=== PATIENT | female | born 1935 | race Caucasian/White ===

== ENCOUNTER 2016-12-31 10:10 | Emergency (ER) | payer MEDICARE, OTHER ==
[2016-12-31 10:27] VITALS: TEMP 97.6
[2016-12-31] MEDS ORDERED: ONDANSETRON ODT 4 MG TAB PO STA (10:52)
--- NOTE | 2016-12-31 10:57 | ED ---
General Adult HPI - General Chief complaint: Nausea/Vomiting/Diarrhea Stated complaint: nauseated, shaky Time Seen by Provider: 12/31/16 10:44 Source: patient Mode of arrival: wheelchair Limitations: no limitations - History of Present Illness Initial comments: This 81-year-old white female presents with a complaint of some dizziness which occurred yesterday afternoon. It apparently lasted for approximately 1 minute. She describes it as a lightheadedness but there is no spinning type of sensation. She has been nauseated since then. She denies any headache, chest pain, shortness of breath. She has not had any problems with ambulation, sensation, weakness, speech, or vision. She states that she had vertigo remotely but this does not feel similar to her previous vertigo. She denies any history of TIA or CVA. She took her blood pressure at home and her systolic was approximately 170. She denies any other complaints or modifying factors. - Related Data Home Medications Medication Instructions Recorded Confirmed Levothyroxine Sodium [Synthroid] 100 mcg PO MOTUWETHFRSA 08/31/14 12/31/16 Omeprazole [PriLOSEC] 20 mg PO DAILY 08/31/14 12/31/16 Pravastatin Sodium [Pravachol] 40 mg PO DAILY 08/31/14 12/31/16 Warfarin [Coumadin] 3 mg PO MOTUTHSA 08/31/14 12/31/16 amLODIPine BESYLATE [Norvasc] 10 mg PO DAILY 08/31/14 12/31/16 Aspirin 81 mg PO DAILY 09/16/14 12/31/16 Levothyroxine Sodium [Synthroid] 50 mcg PO MO 09/16/14 12/31/16 Cholecalciferol [Vitamin D3] 2,000 unit PO DAILY 09/27/15 12/31/16 Sotalol [Betapace] 80 mg PO BID 10/25/15 12/31/16 Calcium Carbonate [Calcium] 600 mg PO DAILY 12/31/16 12/31/16 Ferrous Sulfate [Feosol] 325 mg PO DAILY 12/31/16 12/31/16 Folic Acid 0.8 mg PO DAILY 12/31/16 12/31/16 Lisinopril-Hctz 20-12.5 mg 1 tab PO BID 12/31/16 12/31/16 [Zestoretic 20-12.5] Loratadine [Claritin] 10 mg PO DAILY 12/31/16 12/31/16 Magnesium Chloride [Slow Mag] 64 mg PO BID 12/31/16 12/31/16 Meclizine [Antivert] 25 mg PO QID PRN 12/31/16 12/31/16 Metoprolol Succinate [Toprol XL] 50 mg PO DAILY 12/31/16 12/31/16 Vitamin B Complex 1 cap PO DAILY 12/31/16 12/31/16 Warfarin Sodium [Coumadin] 4.5 mg PO SUWEFR 12/31/16 12/31/16 Previous Rx's Medication Instructions Recorded Ondansetron [Zofran ODT] 8 mg PO Q8HR PRN #12 tab 12/31/16 Allergies Allergy/AdvReac Type Severity Reaction Status Date / Time No Known Allergies Allergy Verified 12/31/16 11:10 Review of Systems ROS Statement: Those systems with pertinent positive or pertinent negative responses have been documented in the HPI. ROS Other: All systems not noted in ROS Statement are negative. Past Medical History Past Medical History: Atrial Fibrillation, Deep Vein Thrombosis (DVT), GERD/ Reflux, Hypertension, Skin Disorder, Thyroid Disorder Additional Past Medical History / Comment(s): vertigo History of Any Multi-Drug Resistant Organisms: None Reported Past Surgical History: Appendectomy, Back Surgery, Bladder Surgery, Cholecystectomy, Ear Surgery, Heart Catheterization, Hysterectomy, Joint Replacement, Orthopedic Surgery, Pacemaker, Tonsillectomy Additional Past Surgical History / Comment(s): Bilateral carpal tunnel, bilateral knee replacements,bilateral cataracts, lt. leg vein surgery. Discectomy in the s Past Anesthesia/Blood Transfusion Reactions: No Reported Reaction Type of Cardiac Device: Permanent Pacemaker Device Placement Date:: 2007 Past Psychological History: No Psychological Hx Reported Smoking Status: Former smoker Past Alcohol Use History: None Reported Past Drug Use History: None Reported General Exam - General Exam Comments Initial Comments: GENERAL: The patient is well nourished and well hydrated. VITAL SIGNS: Heart rate, blood pressure, respiratory rate reviewed as recorded in nurse's notes. EYES: Pupils are round and reactive. Extraocular movements are intact. No conjunctival / lid redness or swelling. ENT: No external evidence of injury, swelling, or ecchymosis. Airway is patent. Throat is clear. The left tympanic membrane is ruptured and this is a chronic finding per patient. NECK: Nontender. No swelling or evidence of injury. No subcutaneous emphysema. Trachea is midline. No thyroid mass. HEART: Regular rate and rhythm. Good peripheral pulses. LUNGS/CHEST: Breath sounds clear and equal bilaterally. No rales, rhonchi, or wheezes. No ecchymosis, subcutaneous emphysema, or tenderness. ABDOMEN: Abdomen soft without tenderness. No palpable masses or organomegaly. No peritoneal signs. No abdominal wall swelling or ecchymosis. EXTREMITIES: No extremity tenderness. Normal muscle tone and function. No thoracolumbar tenderness. NEUROLOGIC: Sensation is grossly intact. Cranial nerve exam reveals face is symmetrical, tongue is midline, speech is clear. SKIN: No abrasions or ecchymosis is noted. No induration or masses noted. PSYCHIATRIC: Alert and oriented. Appropriate behavior and judgment. Limitations: no limitations Course Vital Signs 12/31/16 12/31/16 10:25 12:12 Temperature 97.6 F Pulse Rate 62 60 Respiratory 20 17 Rate Blood Pressure 135/91 113/55 O2 Sat by Pulse 99 97 Oximetry Medical Decision Making - Medical Decision Making The patient was seen and examined. All diagnostics were reviewed. She does receive some Zofran for nausea. The laboratory shows a therapeutic INR but otherwise the laboratory is unremarkable. The EKG shows a paced rhythm at a rate of 64. The MI interval is 198, QRS duration is 84, and the QTc interval is 451. There is no acute ST-T wave changes noted. The computed tomography scan showed some chronic white matter changes likely secondary to microvascular disease. The patient is feeling improved on recheck with the Zofran. The exact cause of her dizziness and nausea is not definitively determined. It is felt as though she is stable for discharge with close follow-up with her primary doctor. Return parameters are discussed. - Lab Data Result diagrams: 12/31/16 11:17 12/31/16 11:17 Lab Results 12/31/16 12/31/16 12/31/16 Range/Units 11:17 11:17 11:17 WBC 6.2 (3.8-10.6) k/uL RBC 4.47 (3.80-5.40) m/uL Hgb 13.0 (11.4-16.0) gm/dL Hct 38.2 (34.0-46.0) % MCV 85.5 (80.0-100.0) fL MCH 29.0 (25.0-35.0) pg MCHC 34.0 (31.0-37.0) g/dL RDW 15.6 H (11.5-15.5) % Plt Count 239 (150-450) k/uL Neutrophils % 65 % Lymphocytes % 25 % Monocytes % 6 % Eosinophils % 1 % Basophils % 1 % Neutrophils # 4.0 (1.3-7.7) k/uL Lymphocytes # 1.5 (1.0-4.8) k/uL Monocytes # 0.4 (0-1.0) k/uL Eosinophils # 0.1 (0-0.7) k/uL Basophils # 0.1 (0-0.2) k/uL PT 24.3 H (9.0-12.0) sec INR 2.5 H (<1.2) APTT 31.5 H (22.0-30.0) sec Sodium 139 (137-145) mmol/L Potassium 4.4 (3.5-5.1) mmol/L Chloride 103 (98-107) mmol/L Carbon Dioxide 26 (22-30) mmol/L Anion Gap 10 mmol/L BUN 22 H (7-17) mg/dL Creatinine 1.10 H (0.52-1.04) mg/dL Est GFR (MDRD) Af Amer 58 (>60 ml/min/1.73 sqM) Est GFR (MDRD) Non-Af 48 (>60 ml/min/1.73 sqM) Glucose 101 H (74-99) mg/dL Calcium 9.4 (8.4-10.2) mg/dL Phosphorus 3.5 (2.5-4.5) mg/dL Magnesium 1.8 (1.6-2.3) mg/dL Total Bilirubin 0.7 (0.2-1.3) mg/dL AST 24 (14-36) U/L ALT 28 (9-52) U/L Alkaline Phosphatase 79 (38-126) U/L Total Protein 7.3 (6.3-8.2) g/dL Albumin 4.4 (3.5-5.0) g/dL Disposition Clinical Impression: Dizziness, Nausea Disposition: HOME SELF-CARE Condition: Good Instructions: Acute Nausea and Vomiting (ED), Dizziness (ED) Prescriptions: Ondansetron [Zofran ODT] 8 mg PO Q8HR PRN #12 tab PRN Reason: Nausea Referrals: Hugo De La O MD [Primary Care Provider] - 1-2 days Time of Disposition: 12:30
[2016-12-31 11:35] LABS: Basophils # (A) 0.1 k/uL (0-0.2); Basophils % (A) 1 %; CH 29.9; CHCM 35.1; Eosinophils # (A) 0.1 k/uL (0-0.7); Eosinophils % (A) 1 %; HCT 38.2 % (34.0-46.0); Luc # (Auto) 0.16; Luc % (Auto) 3; Lymphocytes # (A) 1.5 k/uL (1.0-4.8); Lymphocytes % (A) 25 %; MCV 85.5 fL (80.0-100.0); Mean Platelet Volume 7.2; Monocytes # (A) 0.4 k/uL (0-1.0); Monocytes % (A) 6 %; Neutrophils % (A) 65 %; RBC 4.47 m/uL (3.80-5.40); RDW 15.6 % (11.5-15.5); WBC 6.2 k/uL (3.8-10.6); WBC (Perox) 6.32
[2016-12-31 11:39] LABS: INR 2.5 (<1.2); Partial Thromboplastin Time 31.5 sec (22.0-30.0); Prothrombin Time 24.3 sec (9.0-12.0)
[2016-12-31 11:45] LABS: Calcium 9.4 mg/dL (8.4-10.2); Magnesium 1.8 mg/dL (1.6-2.3); Phosphorous 3.5 mg/dL (2.5-4.5); Potassium 4.4 mmol/L (3.5-5.1); Total Bilirubin 0.7 mg/dL (0.2-1.3); Total Protein 7.3 g/dL (6.3-8.2)
--- NOTE | 2016-12-31 12:04 | CT ---
EXAMINATION TYPE: CT brain wo con DATE OF EXAM: 12/31/2016 COMPARISON: NONE HISTORY: Dizziness for 2 days with headache and right sided head pressure. No known injury CT DLP: 1121 mGycm Automated exposure control for dose reduction was used. FINDINGS: Mild to moderate generalized degenerative change. Nonspecific periventricular low attenuation. No midline shift or mass effect. No acute intracranial hemorrhage. Small focal hypodensity within the basal ganglia may represent a prominent Virchow-Gael space or tin y remote lacunar infarction. Atherosclerotic change of the vasculature. Hyperostosis of the calvarium. IMPRESSION: DEGENERATIVE AND NONSPECIFIC WHITE MATTER CHANGES MOST TYPICAL REMOTE MICROVASCULAR ISCHEMIA. IF THER E IS CONCERN FOR ACUTE ISCHEMIA CONSIDER MRI.
[2016-12-31 12:48] VITALS: BP 146/70; PULSE 63; RESP 18
== END 2016-12-31 12:49 | disposition home or self-care (01) ==
LOC: EC 10:10
DX: R11.0 Nausea (principal); R42 Dizziness and giddiness; H72.92 Unspecified perforation of tympanic membrane, left ear; R90.82 White matter disease, unspecified; I10 Essential (primary) hypertension; I48.91 Unspecified atrial fibrillation; K21.9 Gastro-esophageal reflux disease without esophagitis; E07.9 Disorder of thyroid, unspecified; Z87.891 Personal history of nicotine dependence; Z79.01 Long term (current) use of anticoagulants; Z79.82 Long term (current) use of aspirin; Z79.899 Other long term (current) drug therapy; Z86.718 Personal history of other venous thrombosis and embolism; Z90.49 Acquired absence of other specified parts of digestive tract
CPT/HCPCS: 36415; 70450; 80053; 83735; 84100; 85025; 85610; 85730; 93005; 99284

== ENCOUNTER → 2017-01-10 | Outpatient (CLI) | payer MEDICARE, OTHER ==
[2017-01-10 13:26] LABS: Appearance,Urine Clear (Clear); Bacteria,Urine Rare /hpf; Bilirubin,Urine Negative (Negative); Glucose,Urine (UA) Negative (Negative); Ketones,Urine Negative (Negative); Leukocyte Esterase,Urine Large (Negative); Mucus,Urine Rare /hpf; Nitrite,Urine Negative (Negative); PH, Urine 5.5 (5.0-8.0); Particle Count 1301; Protein,Urine Negative (Negative); RBC,Urine 1 /hpf (0-5); Specific Gravity,Urine 1.009 (1.001-1.035); Squamous Epithelial Cell,Urine 1 /hpf (0-4); UA Billing (MACRO vs. MICRO) MICRO; Urobilinogen,Urine <2.0 mg/dL (<2.0); WBC,Urine 19 /hpf (0-5)
[2017-01-10 13:41] LABS: CH 28.6; CHCM 33.2; HCT 37.2 % (34.0-46.0); HDW 2.64; HGB 12.5 gm/dL (11.4-16.0); MCHC 33.5 g/dL (31.0-37.0); MCV 86.5 fL (80.0-100.0); Mean Platelet Volume 6.6; RDW 14.2 % (11.5-15.5); WBC 5.9 k/uL (3.8-10.6)
[2017-01-10 14:00] LABS: Anion Gap 11 mmol/L; Blood Urea Nitrogen 25 mg/dL (7-17); Calcium 9.4 mg/dL (8.4-10.2); Carbon Dioxide 23 mmol/L (22-30); Chloride 103 mmol/L (98-107); Glucose 100 mg/dL (74-99); Non-African American GFR(MDRD) 53 (>60 ml/min/1.73 sqM); Potassium 4.5 mmol/L (3.5-5.1); Sodium 137 mmol/L (137-145)
[2017-01-10 19:40] LABS: Hemoglobin A1C 5.2 % (4.2-6.1)
== END | disposition home or self-care (01) ==
LOC: LABPAT 12:49
PROVIDERS: ATTEND Orthopaedic Surgery
DX: N39.0 Urinary tract infection, site not specified (principal); M16.11 Unilateral primary osteoarthritis, right hip; Z79.899 Other long term (current) drug therapy
CPT/HCPCS: 36415; 80048; 81001; 82040; 83036; 85027; 87070; 87086

== ENCOUNTER 2017-01-13 13:10 | Emergency (ER) | payer MEDICARE, OTHER ==
--- NOTE | 2017-01-13 14:01 | ED ---
General Adult HPI <Corey William - Last Filed: 01/13/17 15:00> - General Source: patient, RN notes reviewed Mode of arrival: wheelchair Limitations: no limitations <Edward Morales - Last Filed: 01/13/17 15:07> - General Chief complaint: Extremity Injury, Lower Stated complaint: Varicose Vein Bleed Time Seen by Provider: 01/13/17 13:38 - History of Present Illness Initial comments: Vision is an 81-year-old female who presents emergency room today with a chief complaint of a wound to the posterior aspect of the right leg that began bleeding again this morning. She has been that she saw Dr. Avelar who put dressing over the wound. She states change dressing this morning and saw some small amount of bleeding this morning but then noticed that it had bled through her dressing. She states she is on Coumadin. States had a recheck 2 days ago and was 2.3 patient's that she did call Dr. Avelar's office and was advised coming to the emergency room because he is currently at the hospital. She denies any other complaints or symptoms. Patient denies any recent fever, chills , shortness of breath, chest pain, back pain, abdominal pain, nausea or vomiting , numbness or tingling, dysuria or hematuria, constipation or diarrhea, headaches or visual changes, or any other complaints. (Edward Morales) - Related Data Home Medications Medication Instructions Recorded Confirmed Levothyroxine Sodium [Synthroid] 100 mcg PO MOTUWETHFRSA 08/31/14 01/13/17 Omeprazole [PriLOSEC] 20 mg PO DAILY 08/31/14 01/13/17 Pravastatin Sodium [Pravachol] 40 mg PO DAILY 08/31/14 01/13/17 Warfarin [Coumadin] 3 mg PO SUTUWETHFRSA 08/31/14 01/13/17 amLODIPine BESYLATE [Norvasc] 10 mg PO DAILY 08/31/14 01/13/17 Aspirin 81 mg PO DAILY 09/16/14 01/13/17 Levothyroxine Sodium [Synthroid] 50 mcg PO MO 09/16/14 01/13/17 Cholecalciferol [Vitamin D3] 2,000 unit PO DAILY 09/27/15 01/13/17 Sotalol [Betapace] 80 mg PO BID 10/25/15 01/13/17 Calcium Carbonate [Calcium] 600 mg PO DAILY 12/31/16 01/13/17 Folic Acid 0.8 mg PO DAILY 12/31/16 01/13/17 Lisinopril-Hctz 20-12.5 mg 1 tab PO BID 12/31/16 01/13/17 [Zestoretic 20-12.5] Loratadine [Claritin] 10 mg PO DAILY 12/31/16 01/13/17 Magnesium Chloride [Slow Mag] 64 mg PO BID 12/31/16 01/13/17 Meclizine [Antivert] 25 mg PO QID PRN 12/31/16 01/13/17 Metoprolol Succinate [Toprol XL] 50 mg PO DAILY 12/31/16 01/13/17 Vitamin B Complex 1 cap PO DAILY 12/31/16 01/13/17 Warfarin Sodium [Coumadin] 6 mg PO MO 12/31/16 01/13/17 Previous Rx's Medication Instructions Recorded Ondansetron [Zofran ODT] 8 mg PO Q8HR PRN #12 tab 12/31/16 Allergies Allergy/AdvReac Type Severity Reaction Status Date / Time No Known Allergies Allergy Verified 01/13/17 14:11 Review of Systems ROS Other: All systems not noted in ROS Statement are negative. <Corey William - Last Filed: 01/13/17 15:00> ROS Other: All systems not noted in ROS Statement are negative. <Edward Morales - Last Filed: 01/13/17 15:07> ROS Statement: Those systems with pertinent positive or pertinent negative responses have been documented in the HPI. Past Medical History Past Medical History: Atrial Fibrillation, Deep Vein Thrombosis (DVT), GERD/ Reflux, Hypertension, Skin Disorder, Thyroid Disorder Additional Past Medical History / Comment(s): vertigo History of Any Multi-Drug Resistant Organisms: None Reported Past Surgical History: Appendectomy, Back Surgery, Bladder Surgery, Cholecystectomy, Ear Surgery, Heart Catheterization, Hysterectomy, Joint Replacement, Orthopedic Surgery, Pacemaker, Tonsillectomy Additional Past Surgical History / Comment(s): Bilateral carpal tunnel, bilateral knee replacements,bilateral cataracts, lt. leg vein surgery. Discectomy in the s Past Anesthesia/Blood Transfusion Reactions: No Reported Reaction Type of Cardiac Device: Permanent Pacemaker Device Placement Date:: 2007 Past Psychological History: No Psychological Hx Reported Smoking Status: Former smoker Past Alcohol Use History: None Reported Past Drug Use History: None Reported <Edward Morales - Last Filed: 01/13/17 15:07> General Exam <Corey William - Last Filed: 01/13/17 15:00> Limitations: no limitations <Edward Morales - Last Filed: 01/13/17 15:07> - General Exam Comments Initial Comments: General: The patient is awake and alert, in no distress, and does not appear acutely ill. Eye: Pupils are equal, round and reactive to light, extra-ocular movements are intact. No nystagmus. There is normal conjunctiva bilaterally. No signs of icterus. Ears, nose, mouth and throat: There are moist mucous membranes and no oral lesions. Neck: The neck is supple, there is no tenderness or JVD. Cardiovascular: There is a regular rate and rhythm. No murmur, rub or gallop is appreciated. Respiratory: Lungs are clear to auscultation, respirations are non-labored, breath sounds are equal. No wheezes, stridor, rales, or rhonchi. Gastrointestinal: Soft, non-distended, non-tender abdomen without masses or organomegaly noted. There is no rebound or guarding present. No CVA tenderness. Bowel sounds are unremarkable. Musculoskeletal: Normal ROM, no tenderness. Strength 5/5. Sensation intact. Pulses equal bilaterally 2+. Neurological: A&O x 3. CN II-XII intact, There are no obvious motor or sensory deficits. Coordination appears grossly intact. Speech is normal. Skin: Skin is warm and dry and no rashes or lesions are noted. Psychiatric: Cooperative, appropriate mood & affect, normal judgment. (Edward Morales) Course <Corey William - Last Filed: 01/13/17 15:00> <Edward Morales - Last Filed: 01/13/17 15:07> Vital Signs 01/13/17 13:33 Temperature 98.2 F Pulse Rate 69 Respiratory 20 Rate Blood Pressure 183/72 O2 Sat by Pulse 98 Oximetry - Reevaluation(s) Reevaluation #1: 01/13/17 15:00 PA supervision: I did personally do a [id number] evaluation the patient and did discuss the findings with the patient and her . Patient does demonstrate evidence of a varicose pain with some mild oozing from the site. No evidence of any infectious process. There is a small clot in the area. No other significant findings. I did discuss the case with Dr. Avelar who did come the [facility] department and see the patient and did actually treat and wrapped the area. Patient will follow-up with him in the office in 2 days. ( Corey William) Medical Decision Making - Lab Data Result diagrams: 01/13/17 14:17 <Corey William - Last Filed: 01/13/17 15:00> - Lab Data Result diagrams: 01/13/17 14:17 <Edward Morales - Last Filed: 01/13/17 15:07> - Medical Decision Making Patient was seen here in the emergency room by Dr. Avelar who did dress the wound. And will have patient follow-up with him in the office with the scheduled appointment in 2 days. Patient be discharged home. She is with the plan since understanding. (Edward Morales) - Lab Data Lab Results 01/13/17 01/13/17 Range/Units 14:17 14:17 WBC 7.0 (3.8-10.6) k/uL RBC 4.35 (3.80-5.40) m/uL Hgb 12.3 (11.4-16.0) gm/dL Hct 37.1 (34.0-46.0) % MCV 85.5 (80.0-100.0) fL MCH 28.3 (25.0-35.0) pg MCHC 33.1 (31.0-37.0) g/dL RDW 14.9 (11.5-15.5) % Plt Count 208 (150-450) k/uL Neutrophils % 72 % Lymphocytes % 19 % Monocytes % 6 % Eosinophils % 1 % Basophils % 1 % Neutrophils # 5.0 (1.3-7.7) k/uL Lymphocytes # 1.4 (1.0-4.8) k/uL Monocytes # 0.4 (0-1.0) k/uL Eosinophils # 0.1 (0-0.7) k/uL Basophils # 0.0 (0-0.2) k/uL PT 26.4 H (9.0-12.0) sec INR 2.7 H (<1.2) Disposition <Corey William - Last Filed: 01/13/17 15:00> Time of Disposition: 15:06 <Edward Morales - Last Filed: 01/13/17 15:07> Clinical Impression: Visit for wound check Disposition: HOME SELF-CARE Condition: Good Instructions: Chronic Wound Care (ED) Additional Instructions: Please follow-up with Dr. Avelar in the office with her scheduled appointment on Friday. Please return to emergency room if the symptoms increase or worsen or for any other concerns. Referrals: Hugo De La O MD [Primary Care Provider] - 1-2 days
[2017-01-13 14:26] LABS: Basophils % (A) 1 %; CH 29.5; CHCM 34.7; Eosinophils # (A) 0.1 k/uL (0-0.7); Eosinophils % (A) 1 %; HCT 37.1 % (34.0-46.0); HDW 2.68; HGB 12.3 gm/dL (11.4-16.0); Luc # (Auto) 0.12; Luc % (Auto) 2; Lymphocytes # (A) 1.4 k/uL (1.0-4.8); Lymphocytes % (A) 19 %; MCH 28.3 pg (25.0-35.0); MCHC 33.1 g/dL (31.0-37.0); MCV 85.5 fL (80.0-100.0); Mean Platelet Volume 7.3; Monocytes # (A) 0.4 k/uL (0-1.0); Monocytes % (A) 6 %; Neutrophils % (A) 72 %; RBC 4.35 m/uL (3.80-5.40); RDW 14.9 % (11.5-15.5); WBC (Perox) 6.93
[2017-01-13 14:45] LABS: INR 2.7 (<1.2); Prothrombin Time 26.4 sec (9.0-12.0)
[2017-01-13 15:15] VITALS: BP 167/87; PULSE 87; RESP 18; TEMP 98.4
== END 2017-01-13 15:16 | disposition home or self-care (01) ==
LOC: EC 13:10
DX: I83.891 Varicose veins of right lower extremity with other complications (principal); I10 Essential (primary) hypertension; I48.91 Unspecified atrial fibrillation; K21.9 Gastro-esophageal reflux disease without esophagitis; E07.9 Disorder of thyroid, unspecified; Z87.891 Personal history of nicotine dependence; Z79.01 Long term (current) use of anticoagulants; Z79.82 Long term (current) use of aspirin; Z79.899 Other long term (current) drug therapy; Z86.718 Personal history of other venous thrombosis and embolism; Z98.890 Other specified postprocedural states
CPT/HCPCS: 36415; 85025; 85610; 99283

== ENCOUNTER → 2017-02-06 | Outpatient (CLI) | payer MEDICARE, OTHER ==
--- NOTE | 2017-02-06 12:42 | MM ---
Reason for exam: screening (asymptomatic). Last mammogram was performed 1 year ago. History: Patient is postmenopausal and history of other cancer. Physical Findings: A clinical breast exam by your physician is recommended on an annual basis and results should be correlated with mammographic findings. MG 3D Screening Mammo W/Cad Bilateral CC and MLO view(s) were taken. Prior study comparison: February 05, 2016, bilateral MG 3d screening mammo w/cad. January 24, 2015, bilateral MG screening mammo w CAD. There are scattered fibroglandular densities. No suspicious abnormality. No significant changes when compared with prior studies. ASSESSMENT: Negative, BI-RAD 1 RECOMMENDATION: Routine screening mammogram of both breasts in 1 year.
== END | disposition home or self-care (01) ==
LOC: RADMAMWWP 09:02
PROVIDERS: ATTEND Internal Medicine
DX: Z12.31 Encounter for screening mammogram for malignant neoplasm of breast (principal)
CPT/HCPCS: 77063; G0202

== ENCOUNTER → 2017-03-19 | Outpatient (CLI) | payer MEDICARE, OTHER ==
[2017-03-19 11:19] LABS: CHCM 32.2; HDW 2.86; HGB 10.9 gm/dL (11.4-16.0); MCH 28.1 pg (25.0-35.0); MCHC 32.1 g/dL (31.0-37.0); MCV 87.4 fL (80.0-100.0); Mean Platelet Volume 6.8; RBC 3.88 m/uL (3.80-5.40); RDW 13.8 % (11.5-15.5); WBC 5.2 k/uL (3.8-10.6)
[2017-03-19 11:45] LABS: Potassium 4.9 mmol/L (3.5-5.1)
== END | disposition home or self-care (01) ==
LOC: LABWHC1 10:20
PROVIDERS: ATTEND Internal Medicine Clinical Cardiac Electrophysiology
DX: I48.0 Paroxysmal atrial fibrillation (principal)
CPT/HCPCS: 36415; 80048; 85027

== ENCOUNTER → 2017-05-16 | Outpatient (CLI) | payer MEDICARE, OTHER ==
[2017-05-16 11:02] LABS: Basophils # (A) 0.1 k/uL (0-0.2); Basophils % (A) 1 %; Eosinophils # (A) 0.1 k/uL (0-0.7); Eosinophils % (A) 2 %; HCT 37.9 % (34.0-46.0); HGB 11.7 gm/dL (11.4-16.0); Lymphocytes # (A) 1.9 k/uL (1.0-4.8); Lymphocytes % (A) 28 %; MCH 26.3 pg (25.0-35.0); MCHC 30.9 g/dL (31.0-37.0); Monocytes # (A) 0.5 k/uL (0-1.0); Monocytes % (A) 8 %; Neutrophils # (A) 3.8 k/uL (1.3-7.7); Neutrophils % (A) 58 %; Platelet Count 245 k/uL (150-450); RBC 4.47 m/uL (3.80-5.40); RDW 15.5 % (11.5-15.5); WBC 6.6 k/uL (3.8-10.6)
[2017-05-16 11:22] LABS: Anion Gap 8 mmol/L; Blood Urea Nitrogen 23 mg/dL (7-17); Calcium 9.5 mg/dL (8.4-10.2); Carbon Dioxide 29 mmol/L (22-30); Chloride 102 mmol/L (98-107); Glucose 102 mg/dL (74-99); Potassium 5.2 mmol/L (3.5-5.1); Sodium 139 mmol/L (137-145)
[2017-05-16 12:07] LABS: Poikilocytosis (M) Present
== END | disposition home or self-care (01) ==
LOC: LABWHC1 10:33
PROVIDERS: ATTEND Internal Medicine Clinical Cardiac Electrophysiology
DX: I48.91 Unspecified atrial fibrillation (principal); I49.5 Sick sinus syndrome; I10 Essential (primary) hypertension
CPT/HCPCS: 36415; 80048; 85025

== ENCOUNTER 2017-05-19 12:34 | Day surgery (SDC) | payer MEDICARE, OTHER ==
[2017-05-16 14:29] VITALS: BMI 38.8
[~2017-05-19 12:34] MED LIST: SODIUM CHLORIDE 0.9% 1,000 ML IV SCH; VANCOMYCIN 2,000 MG in SODIUM CHLORIDE 0.9% 500 ML IVPB ONE
[2017-05-19] MEDS ORDERED: ceFAZolin IN SWFI 2 GM/20 ML SYRINGE IVP STA (12:54)
[2017-05-19] MEDS ORDERED: ceFAZolin 1,000 MG in SODIUM CHLORIDE 0.9% IRRIGATIO 250 ML IRRIGATION ONE (12:54)
[2017-05-19 13:34] LABS: Prothrombin Time 18.2 sec (9.0-12.0)
[2017-05-19] MEDS ORDERED: fentaNYL (PF) 50 MCG/ML 2 ML AMP ONE (16:31)
[2017-05-19] MEDS ORDERED: LIDOCAINE 2% INJ 20 MG/ML SQ ONE (16:35)
[2017-05-19] MEDS ORDERED: fentaNYL (PF) 50 MCG/ML 2 ML AMP IV ONE (16:35)
[2017-05-19] MEDS ORDERED: ACETAMINOPHEN TAB 325 MG TAB PO PRN ×2 (17:02→17:07)
[2017-05-19] MEDS ORDERED: HYDROcodone/APAP 5-325MG 1 EACH TAB PO PRN (17:07)
[2017-05-19] MEDS ORDERED: ACETAMINOPHEN IV (For NPO) 1,000 MG in EMPTY BAG 1 BAG IVPB ONE (17:07)
--- NOTE | 2017-05-19 17:21 | P.PCN ---
Preoperative Diagnosis: Diagnosis Stitch abscess No erythema or inflammation around it Procedure incision and drainage IV vancomycin was administered prior to entering lab An incision was made directly over the small half by half centimeter abscess and a small amount of pus with suture material was drained About a 1 cm incision was made and the edges were cleaned. The subfascial layer was intact The wound was closed with monofilament, loosely She had a tiny stitch abscess and the other end about its half a centimeter away from the incision which was incised and once again puslike material, pale with a stitch was extubated. The area was then dressed Patient was transferred to the floor for IV antibiotics Conscious sedation Patient underwent EP procedure under conscious sedation/moderate sedation, monitoring of the level of consciousness and physiologic parameters including but not limited to vital signs and oxygenation. Patient tolerated the procedure well without any acute complications. Start time: 1630 Stop time: 1658 Condition: stable
[2017-05-19] MEDS ORDERED: WARFARIN 1.5 MG TAB PO SCH (18:00)
[2017-05-19 20:40] VITALS: RESP 16
[2017-05-19] MEDS: LISINOPRIL-HCTZ 20-12.5 MG 1 EACH TAB PO SCH (20:49)
[2017-05-19] MEDS: SOTALOL 80 MG TAB PO SCH (20:49)
[2017-05-19] MEDS ORDERED: PRAVASTATIN SODIUM 40 MG TAB PO SCH (21:00)
[2017-05-19] MEDS: ceFAZolin IN SWFI 2 GM/20 ML SYRINGE IVP SCH (21:47)
[2017-05-20] MEDS: ceFAZolin IN SWFI 2 GM/20 ML SYRINGE IVP SCH ×2 (04:34→11:48)
[2017-05-20] MEDS ORDERED: LEVOTHYROXINE 100 MCG TAB PO SCH (06:30)
[2017-05-20 08:59] VITALS: PULSE 57; TEMP 97.4
[2017-05-20] MEDS ORDERED: METOPROLOL SUCCINATE (ER) 50 MG TAB.ER.24H PO SCH (09:00)
[2017-05-20] MEDS ORDERED: amLODIPine 10 MG TAB PO SCH (09:00)
[2017-05-20] MEDS ORDERED: ASPIRIN 81 MG PO SCH (09:00)
[2017-05-20 11:46] VITALS: BP 96/56
[2017-05-20] MEDS: SOTALOL 80 MG TAB PO SCH (11:50)
[2017-05-20] MEDS: LISINOPRIL-HCTZ 20-12.5 MG 1 EACH TAB PO SCH (11:51)
--- NOTE | 2017-05-20 11:52 | P.DS ---
Providers Attending physician: Sander Dimas Primary care physician: Hugo De La O [facility] Course: Patient is doing well. No chest discomfort or undue shortness of breath No soakage in the dressing Heart sounds are normal breath sounds are clear Breath sounds are clear Abdomen soft Impression Sick sinus syndrome permanent pacemaker implantation and a stitch abscess Plan Discharge home after completion of IV antibiotics Patient Condition at Discharge: Stable Plan - Discharge Summary Discharge Rx Participant: Yes New Discharge Prescriptions: Continue amLODIPine BESYLATE [Norvasc] 10 mg PO DAILY Pravastatin Sodium [Pravachol] 40 mg PO HS Levothyroxine Sodium [Synthroid] 100 mcg PO MOTUWETHFRSA Warfarin [Coumadin] 3 mg PO SUTUWETHFRSA Omeprazole [PriLOSEC] 20 mg PO DAILY Levothyroxine Sodium [Synthroid] 50 mcg PO MO Aspirin 81 mg PO DAILY Cholecalciferol [Vitamin D3] 2,000 unit PO DAILY Sotalol [Betapace] 80 mg PO BID Vitamin B Complex 1 cap PO DAILY Metoprolol Succinate [Toprol XL] 50 mg PO DAILY Lisinopril-Hctz 20-12.5 mg [Zestoretic 20-12.5] 1 tab PO BID Meclizine [Antivert] 25 mg PO QID PRN PRN Reason: Vertigo Magnesium Chloride [Slow-Mag] 64 mg PO DAILY Loratadine [Claritin] 10 mg PO HS Calcium Carbonate [Calcium] 600 mg PO DAILY Warfarin Sodium [Coumadin] 1.5 mg PO MO Folic Acid 0.8 mg PO DAILY Cephalexin [Keflex] 500 mg PO Q6H Discharge Medication List Levothyroxine Sodium [Synthroid] 100 mcg PO MOTUWETHFRSA 08/31/14 [History] Omeprazole [PriLOSEC] 20 mg PO DAILY 08/31/14 [History] Pravastatin Sodium [Pravachol] 40 mg PO HS 08/31/14 [History] Warfarin [Coumadin] 3 mg PO SUTUWETHFRSA 08/31/14 [History] amLODIPine BESYLATE [Norvasc] 10 mg PO DAILY 08/31/14 [History] Aspirin 81 mg PO DAILY 09/16/14 [History] Levothyroxine Sodium [Synthroid] 50 mcg PO MO 09/16/14 [History] Cholecalciferol [Vitamin D3] 2,000 unit PO DAILY 09/27/15 [History] Sotalol [Betapace] 80 mg PO BID 10/25/15 [History] Calcium Carbonate [Calcium] 600 mg PO DAILY 12/31/16 [History] Folic Acid 0.8 mg PO DAILY 12/31/16 [History] Lisinopril-Hctz 20-12.5 mg [Zestoretic 20-12.5] 1 tab PO BID 12/31/16 [History] Loratadine [Claritin] 10 mg PO HS 12/31/16 [History] Magnesium Chloride [Slow-Mag] 64 mg PO DAILY 12/31/16 [History] Meclizine [Antivert] 25 mg PO QID PRN 12/31/16 [History] Metoprolol Succinate [Toprol XL] 50 mg PO DAILY 12/31/16 [History] Vitamin B Complex 1 cap PO DAILY 12/31/16 [History] Warfarin Sodium [Coumadin] 1.5 mg PO MO 12/31/16 [History] Cephalexin [Keflex] 500 mg PO Q6H 05/16/17 [History] Activity/Diet/Wound Care/Special Instructions: Keep wound dry for 7 days Resume home medications Patient has oral Keflex as prescribed last week and she should complete the entire course when she gets home Follow up in the device clinic in 5 days Dressing to stay in place until seen in office Discharge Disposition: HOME SELF-CARE
[2017-05-20] MEDS ORDERED: WARFARIN 3 MG TAB PO SCH (18:00)
[2017-05-25] MEDS ORDERED: LEVOTHYROXINE 50 MCG TAB PO SCH (06:30)
== END 2017-05-20 13:25 | disposition home or self-care (01) ==
LOC: CATHEP 12:34 → 3SUR 16:59 → CATHEP 05-20 13:25
PROVIDERS: ATTEND Internal Medicine Clinical Cardiac Electrophysiology
DX: L02.91 Cutaneous abscess, unspecified (principal); I10 Essential (primary) hypertension; R00.1 Bradycardia, unspecified; I49.5 Sick sinus syndrome; Z95.0 Presence of cardiac pacemaker; Z79.01 Long term (current) use of anticoagulants; Z79.82 Long term (current) use of aspirin; Z79.899 Other long term (current) drug therapy
CPT/HCPCS: 10060; 85610; J2001; J3370; J3010; J0131; J0690 ×2; 12001

== ENCOUNTER → 2017-08-11 | Outpatient (CLI) | payer MEDICARE, OTHER ==
[2017-08-11 13:58] VITALS: BP 158/73; PULSE 62; RESP 18
--- NOTE | 2017-08-11 14:11 | P.PN ---
Progress Note - Text Progress Note Date: 08/11/17 Patient returns for followup for chronic neck/back pain with radiation to the hips, and had recent BRIE in February 2017. Patient previously underwent lumbar RFA in 2016 with good relief. Patient continues on no regular opioid medications for pain. Patient denies adverse drug effects from medications. Today, pt denies new-onset weakness, bowel/bladder incontinence, or any other signs or symptoms of cauda equina syndrome. There are no signs of acute intoxication, and no indications of medication diversion or overuse. In addition to above, 13-point review of systems is also negative for chest pain , shortness of breath, changes in vision, changes in hearing, new onset weakness , abdominal pain, diarrhea, extreme fatigue, malaise, fever, skin changes, homicidal or suicidal ideation, or bowel or bladder incontinence. Vital Signs: Reviewed in EMR Gen: WDWN, AAOx3, NAD HEENT: NCAT, EOMI, hearing grossly normal Pulm: resp unlabored Abd: soft, NT, ND Neck: supple, trachea midline ROM in flexion lumbar spine: reduced ROM in extension lumbar spine: reduced Lumbar paravertebral tenderness: + Facet loading: + bilateral SI joint tenderness: + L side Stevan's test: + L > R Straight leg raise: neg Lower extremity: decreased ROM dorsiflexion/plantarflexion strength, hip flexion/extension, and knee flexion/extension secondary to pain Imaging: Reviewed in EMR Assessment: 1. lumbar spondylosis without myelopathy 2. hip OA 3. SIJ dysfunction Plan: 1. Explanation: Opioid and psychological risk scores were reviewed. Diagnoses , prognoses, and multiple treatment options including but not limited to physical therapy, interventional therapies, adjuvant medical therapies, narcotic medication therapies, and surgery were discussed with the patient and all questions were answered to the patient's satisfaction. 2. Opioid agreement: no opioids prescribed today 3. Counseling: The patient was counseled extensively on BODY MASS INDEX, EXERCISE. Specifically, the patient was instructed regarding the importance of sweight control, and exercise in the context of both chronic pain and overall health. 4. Procedures: L lumbar RFA; if little relief, consider L SIJ injection 5. Consultations: None 6. Investigations: UDS not done today, MAPS queried and appropriate 7. Medications: none prescribed 8. Disposition: f/u for procedure as scheduled
== END | disposition home or self-care (01) ==
LOC: PNWHC3 13:37
PROVIDERS: ATTEND Anesthesiology
DX: G89.29 Other chronic pain (principal); M54.2 Cervicalgia; M54.9 Dorsalgia, unspecified; M47.816 Spondylosis without myelopathy or radiculopathy, lumbar region; M53.88 Other specified dorsopathies, sacral and sacrococcygeal region; M16.10 Unilateral primary osteoarthritis, unspecified hip; Z96.649 Presence of unspecified artificial hip joint
CPT/HCPCS: 99211

== ENCOUNTER 2017-10-07 05:55 | Day surgery (SDC) | payer MEDICARE, OTHER ==
[2017-10-01 16:07] VITALS: BMI 39.3
[2017-10-07] MEDS ORDERED: LACTATED RINGERS 1,000 ML IV SCH (07:30)
[2017-10-07 07:31] VITALS: RESP 16; TEMP 97.1
[2017-10-07] MEDS ORDERED: LIDOCAINE 1% 20 ML VIAL (10MG/ML) FOR IV START INTRADERMA ONE (07:40)
[2017-10-07 07:58] LABS: INR 1.2 (<1.2); Prothrombin Time 11.3 sec (9.0-12.0)
[2017-10-07] MEDS ORDERED: KETOROLAC 30 MG/ML 1 ML VIAL IVP PRN (09:14)
[2017-10-07] MEDS ORDERED: IV FLUID CONTINUATION 750 ML IV ONE (09:18)
--- NOTE | 2017-10-07 09:19 | FL ---
EXAMINATION TYPE: FL guided pain mgmt statistic DATE OF EXAM: 10/07/2017 HISTORY: Flouroscopy time 22 seconds of fluoroscopy provided. IMPRESSION: 1. Fluoroscopy time.
--- NOTE | 2017-10-07 09:24 | P.PCN ---
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 ANESTHESIA: 1% lidocaine plain; Conscious sedation with versed/fentanyl EBL: Minimal PROCEDURE INDICATION: The patient with low back pain secondary to lumbar arthropathy who had more than 50% relief of pain with previous diagnostic lumbar medial branch block with bupivacaine. Patient presents for RFA today; no use of blood thinners. PROCEDURE DESCRIPTION / TECHNIQUE: The patient was seen and identified in the preoperative area. Risks, benefits, complications, and alternatives were discussed with the patient (including but not limited to incomplete pain relief , bleeding, infection, nerve damage, and allergies to medications), the patient agreed to proceed with the procedure and signed the consent after all questions were answered. Patient was taken to the OR and time out was completed to verify proper patient , position, laterality of pain, and allergies. Pt was placed in the prone position. IV was started. Vital signs remained stable throughout the procedure. A pillow was placed under the patients chest to decrease lordosis. The lumbosacral area was prepped and draped in the usual sterile fashion. Vital signs were closely monitored during the procedure. Conscious sedation was used during the procedure to decrease patients anxiety. Using AP and then oblique fluoroscopy, the eye of the Gavin dog corresponding to the connection between the superior and transverse articular processes of left L3, L4, L5 and top of the sacrum were identified, marked, and localized with 1% lidocaine. Subsequently, a 18 gauge, 100-mm radiofrequency cannula with a 10-mm active tip was advanced guided by fluoroscopy to each of the eyes of the Gavin dog at the levels of all four medial branches, but there was excessive oozing from the fourth needle and it was removed. Each site then underwent sensory testing at 50 Hz and 0 to 1 volt and motor testing at 2 Hz and 0 to 3 volt with local stimulation, but no radicular symptoms down the legs. Thereafter all three medial branch sites underwent radiofrequency thermocoagulation at 80 degrees Celsius for 90 seconds after injecting 0.5 ml of PF lidocaine 1%. After thermocoagulation, 1 ml of the block solution containing Kenalog 40 mg and 2 mL of preservative-free normal saline was injected at each medial branch level after negative aspiration of CSF and blood and with no paresthesias. Cannulas were retracted while injecting lidocaine 1% until the needles were removed. At the end of the procedure, the skin was cleansed and bandages were applied. COMPLICATIONS: No acute complications. DISPOSITION / PLANS: The patient was placed in a supine position and transferred to the recovery area in a stable condition for observation and was discharged from the recovery room after meeting discharge criteria. Home discharge instructions given to the patient by the staff. The patient was reexamined prior to discharge. The patient will schedule a follow up in the clinic in 2-4 weeks to discuss efficacy. I did inform the patient regarding signs and symptoms of hematoma and instructed her to go to ER if any of these arose, including bowel or bladder incontinence, severe pain at the injection site, or new-onset or worsening weakness.
[2017-10-07 09:57] VITALS: BP 129/57; PULSE 55
== END 2017-10-07 10:11 | disposition home or self-care (01) ==
LOC: ORPAIN 05:55
PROVIDERS: ATTEND Anesthesiology
DX: M47.816 Spondylosis without myelopathy or radiculopathy, lumbar region (principal); I48.91 Unspecified atrial fibrillation; I10 Essential (primary) hypertension; E78.5 Hyperlipidemia, unspecified; Z79.01 Long term (current) use of anticoagulants; Z95.0 Presence of cardiac pacemaker
CPT/HCPCS: 64635; 64636 ×2; 85610; J2250; J3301; J3010; J1885; 99152

== ENCOUNTER → 2017-10-30 | Outpatient (CLI) | payer MEDICARE, OTHER ==
[2017-10-30 13:01] VITALS: BP 123/72; PULSE 97; RESP 18
--- NOTE | 2017-10-30 13:18 | P.PAINPG ---
Subjective Progress Note Date: 10/30/17 Principal diagnosis: Left buttocks pain, left low back pain This is a very pleasant 82-year-old woman with a history of low back pain. She is gone through radio frequency ablation recently which reproduced her pain for approximately 2 days. She continues to complain of substantial pain in this area. This pain is worse with walking and in laying in bed to sleep. She denies any lumbar radicular components to this. She feels this is related to some muscle function after her left hip surgery. Objective - Vital Signs Vital signs: Vital Signs Temp Pulse 97 10/30/17 12:54 Resp 18 10/30/17 12:54 BP 123/72 10/30/17 12:54 Pulse Ox 98 10/30/17 12:54 Intake & Output 10/29/17 10/30/17 10/30/17 18:59 06:59 18:59 Weight 104.326 kg - Exam General: The patient is alert and oriented. Patient is not sedateded Patient answers all question appropriately. Cardiac: Heart is regular in rate and rhythm Respiratory: Clear to auscultation. No audible wheezes. Abdomen: Soft nontender nondistended. Lower extremities: Strength is normal bilaterally. Sensation is normal bilaterally. Reflexes are preserved and symmetric bilaterally. Straight leg raise is negative bilaterally. Multiple trigger points are palpated in the gluteal area on the left side. These are also present at the lumbosacral junction. Assessment and Plan (1) Myofascial pain syndrome Narrative/Plan: Plan of Care 1. Medications: Given this patient's age and the presentation for her pain, I would recommend she utilized Tylenol as well as topical analgesics. 2. Interventions: I recommend the patient have left gluteal trigger point injections to help with her pain. I believe accommodation local anesthetic and steroid will help relax her muscles and achieve a more normal functioning pattern. 3. Referrals: I am referring the patient to physical therapy for myofascial release. She has completed physical therapy recently however this component was not involved in it. 4. Testing: None. 5. Psychological: I will not send the patient to psychologist this time. She denies significant anxiety or depression. Current Visit: Yes Status: Acute Code(s): M79.1 - MYALGIA SNOMED Code(s): 461825149 (2) Chronic left sacroiliac pain Current Visit: Yes Status: Acute Code(s): M53.3 - SACROCOCCYGEAL DISORDERS, NOT ELSEWHERE CLASSIFIED; G89.29 - OTHER CHRONIC PAIN SNOMED Code(s): 947986153 PQRS Measure Charge Sheet Measure #130: Documentation of Current Meds in Medical Chart: Patient's medications documented in chart Measure #226: Tobacco Use: Screen & Cessation Intervention: Pt not a tobacco user Measure #111: Pneumonia Vaccination: Pneumococcal vaccine NOT administered or previously given Measure #47: Advance Care Plan: Advance care planning discussed & documented, pt chose/unable to give Measure #412: Opioid Treatment Agreement: No documentation of signed opioid treatment agreement Measure #408: Opioid Therapy Follow-up Evaluation: Patient had NO f/u eval minimum every 3 months during opioid therapy Measure #317: Preventitive Care & Scrn High Bld Press & F/U: Normal blood pressure, f/u not required Measure #128: Body Mass Index (BMI) Screening & Follow-up: BMI documented ABOVE normal parameters - f/u documented Measure #131: Pain Assessment & Follow-up: Pain positive & plan documented Measure #431: Unhealthy Alcohol Use Preventative Care & Scrn: Patient not identified as an unhealthy alcohol user PQRS Narrative: Smoking Status Former smoker Do You Want the Pneumonia Vaccine Up to Date Vaccine AT THIS TIME? Blood Pressure 123/72 Pain Intensity [Left Buttock] 8 Scale Used Numeric (1 - 10) Hx Alcohol Use (MH) No Home Medications: Ambulatory Orders Levothyroxine Sodium [Synthroid] 100 mcg PO MOTUWETHFRSA 08/31/14 Omeprazole [PriLOSEC] 20 mg PO DAILY 08/31/14 Pravastatin Sodium [Pravachol] 40 mg PO 08/31/14 Warfarin [Coumadin] 3 mg PO SUTUWETHFRSA 08/31/14 Aspirin 81 mg PO DAILY 09/16/14 Cholecalciferol [Vitamin D3] 2,000 unit PO DAILY 09/27/15 Sotalol [Betapace] 80 mg PO BID 10/25/15 Folic Acid 800 mg PO DAILY 12/31/16 Lisinopril-Hctz 20-12.5 mg [Zestoretic 20-12.5] 1 tab PO BID 12/31/16 Loratadine [Claritin] 10 mg PO 12/31/16 Magnesium Chloride [Slow-Mag] 64 mg PO DAILY 12/31/16 Meclizine [Antivert] 25 mg PO QID PRN 12/31/16 Metoprolol Succinate [Toprol XL] 50 mg PO DAILY 12/31/16 Vitamin B Complex 1 cap PO DAILY 12/31/16 Warfarin Sodium [Coumadin] 1.5 mg PO MO 12/31/16 Calcium Acetate [PhosLo] 600 mg PO DAILY 08/11/17 Levothyroxine Sodium [Synthroid] 50 mcg PO MO 09/05/17 amLODIPine [Norvasc] 10 mg PO DAILY 10/01/17 Controlled Substance Measures - Controlled Substance Measures Is patient prescribed a controlled substance at discharge?: No
== END | disposition home or self-care (01) ==
LOC: PNWHC3 12:06
PROVIDERS: ATTEND Pain Medicine Pain Medicine
DX: G89.29 Other chronic pain (principal); M79.1 Myalgia; M53.3 Sacrococcygeal disorders, not elsewhere classified; Z87.891 Personal history of nicotine dependence; Z79.899 Other long term (current) drug therapy; Z79.01 Long term (current) use of anticoagulants; Z79.82 Long term (current) use of aspirin
CPT/HCPCS: 99211

== ENCOUNTER → 2017-11-05 | Outpatient (CLI) | payer MEDICARE, OTHER ==
[2017-11-05 14:23] LABS: Calcium 9.8 mg/dL (8.4-10.2); Magnesium 1.8 mg/dL (1.6-2.3); Potassium 4.7 mmol/L (3.5-5.1)
== END | disposition home or self-care (01) ==
LOC: LABWHC1 11:40
PROVIDERS: ATTEND Nurse Practitioner Adult Health
DX: I10 Essential (primary) hypertension (principal)
CPT/HCPCS: 36415; 80048; 83735

== ENCOUNTER 2017-11-11 07:09 | Day surgery (SDC) | payer MEDICARE, OTHER ==
[2017-11-05 16:06] VITALS: BMI 38.2
[~2017-11-11 07:09] MED LIST changes: +LACTATED RINGERS 1,000 ML IV SCH; -SODIUM CHLORIDE 0.9% 1,000 ML IV SCH; -VANCOMYCIN 2,000 MG in SODIUM CHLORIDE 0.9% 500 ML IVPB ONE
[2017-11-11 08:02] VITALS: RESP 16; TEMP 9725
[2017-11-11] MEDS ORDERED: LIDOCAINE 1% 20 ML VIAL (10MG/ML) FOR IV START INTRADERMA ONE (08:20)
--- NOTE | 2017-11-11 09:10 | P.PCN ---
Date of Procedure: 11/11/17 Preoperative Diagnosis: Myofascial pain in the left buttock area Postoperative Diagnosis: Same as above Procedure(s) Performed: Trigger point injection in the gluteus muscles Anesthesia: other (IV conscious sedation with 1 mg of Versed and 50 mg of fentanyl) Surgeon: Marylou Adame Pathology: none sent Condition: stable Disposition: PACU Description of Procedure: The patient was seen in the preop holding area consent was obtained. Her PT and INR were within normal limits. The patient was brought into the procedure room and placed in the right lateral decubitus position. Skin was prepped with ChloraPrep and draped in a sterile manner. The trigger points were the previously marked on the skin of the left buttock area. I used 25-gauge 3-1/2 inch Quincke spinal needle to go through the skin and to inject 2 MLS in each trigger point of a solution made up of 7 MLS of ropivacaine 0.5% +40 mg of Kenalog. A total of 4 trigger points were injected in side the body of the gluteus marianne muscle, gluteus medius ,and minimum muscles. The patient tolerated the procedure well and was taken in stable condition to the recovery room. She can resume her Coumadin today. She will be seen in the clinic clinic in a few weeks.
[2017-11-11] MEDS ORDERED: IV FLUID CONTINUATION 1,000 ML IV ONE (09:13)
[2017-11-11 09:31] VITALS: BP 103/63; PULSE 50
== END 2017-11-11 09:55 | disposition home or self-care (01) ==
LOC: ORPAIN 07:09
PROVIDERS: ATTEND Anesthesiology
DX: G89.29 Other chronic pain (principal); M79.1 Myalgia; M53.3 Sacrococcygeal disorders, not elsewhere classified; M54.5 Low back pain; Z79.01 Long term (current) use of anticoagulants; Z79.82 Long term (current) use of aspirin; Z79.890 Hormone replacement therapy; Z79.899 Other long term (current) drug therapy; Z87.891 Personal history of nicotine dependence
CPT/HCPCS: 20553; J2250; J3010

== ENCOUNTER → 2017-11-11 | Outpatient (CLI) | payer MEDICARE, OTHER ==
[2017-11-11 07:25] LABS: INR 1.1 (<1.2)
== END | disposition home or self-care (01) ==
LOC: LABWHC1 06:49
PROVIDERS: ATTEND Specialist
DX: Z51.81 Encounter for therapeutic drug level monitoring (principal); Z79.01 Long term (current) use of anticoagulants
CPT/HCPCS: 36415; 85610

== ENCOUNTER → 2018-03-06 | Outpatient (CLI) | payer MEDICARE, OTHER ==
--- NOTE | 2018-03-06 13:40 | CT ---
EXAMINATION TYPE: CT lumbar spine wo con DATE OF EXAM: 03/06/2018 COMPARISON: None HISTORY: lower back pain/lt buttocks area CT DLP: [address] of the lumbar spine was performed. Bone and soft tissue window settings are submitted as well as coronal and sagittal reconstructions. L1-L2: Moderate to severe degenerative disc disease. Circumferential disc bulge at least moderate in degree. Hypertrophy of ligamentum flavum and facet joint arthropathy contribute to moderate to severe central stenosis. Bilateral foraminal encroachment. L2-L3: Moderate to severe degenerative disc disease. Circumferential disc bulge at least moderate in degree. Hypertrophy of ligamentum flavum and facet joint arthropathy contribute to moderate to severe central stenosis. Bilateral foraminal encroachment. L3-L4: Severe degenerative disc disease. Circumferential disc bulge severe in degree. Hypertrophy of ligamentum flavum and facet joint arthropathy contribute to severe central stenosis. Bilateral forami nal encroachment. L4-L5: Severe degenerative disc disease. Circumferential disc bulge severe in degree. Hypertrophy of ligamentum flavum and facet joint arthropathy contribute to severe central stenosis. Bilateral forami nal encroachment. Grade 1 anterolisthesis L4 and L5 measuring 6 mm. L5-S1: Moderate to severe degenerative disc disease. Circumferential disc bulge at least moderate in degree. Hypertrophy of ligamentum flavum and facet joint arthropathy contribute to moderate to severe central stenosis. Bilateral foraminal encroachment. No paraspinal masses are identified. Lumbar segments are free if fracture. IMPRESSION: 1. Multilevel degenerative disc disease with multilevel central stenosis greatest at L3-4 and L4-5.
== END | disposition home or self-care (01) ==
LOC: RADCTMAIN 13:07
PROVIDERS: ATTEND Physical Medicine & Rehabilitation
DX: M48.061 Spinal stenosis, lumbar region without neurogenic claudication (principal); M51.16 Intervertebral disc disorders with radiculopathy, lumbar region
CPT/HCPCS: 72131

== ENCOUNTER → 2018-03-25 | Outpatient (CLI) | payer MEDICARE, OTHER ==
[2018-03-25 13:14] LABS: INR 1.2 (<1.2); Prothrombin Time 11.3 sec (9.0-12.0)
== END | disposition home or self-care (01) ==
LOC: LABWHC1 11:30
PROVIDERS: ATTEND Physical Medicine & Rehabilitation
DX: K21.9 Gastro-esophageal reflux disease without esophagitis (principal); M48.062 Spinal stenosis, lumbar region with neurogenic claudication; M51.16 Intervertebral disc disorders with radiculopathy, lumbar region; M47.26 Other spondylosis with radiculopathy, lumbar region; M43.16 Spondylolisthesis, lumbar region; M16.11 Unilateral primary osteoarthritis, right hip; M25.552 Pain in left hip; I11.9 Hypertensive heart disease without heart failure; E78.5 Hyperlipidemia, unspecified; R20.2 Paresthesia of skin; M41.26 Other idiopathic scoliosis, lumbar region; Z95.0 Presence of cardiac pacemaker; Z98.890 Other specified postprocedural states; Z51.81 Encounter for therapeutic drug level monitoring; Z79.01 Long term (current) use of anticoagulants
CPT/HCPCS: 36415; 85610

== ENCOUNTER → 2018-04-13 | Outpatient (CLI) | payer MEDICARE, OTHER ==
[2018-04-13 10:46] LABS: INR 1.2 (<1.2); Prothrombin Time 12.1 sec (9.0-12.0)
== END | disposition home or self-care (01) ==
LOC: LABWHC1 09:21
PROVIDERS: ATTEND Physical Medicine & Rehabilitation
DX: E78.5 Hyperlipidemia, unspecified (principal); R20.2 Paresthesia of skin; I11.9 Hypertensive heart disease without heart failure; M16.11 Unilateral primary osteoarthritis, right hip; M48.062 Spinal stenosis, lumbar region with neurogenic claudication; M51.16 Intervertebral disc disorders with radiculopathy, lumbar region; M43.16 Spondylolisthesis, lumbar region; M41.26 Other idiopathic scoliosis, lumbar region; M47.27 Other spondylosis with radiculopathy, lumbosacral region; Z51.81 Encounter for therapeutic drug level monitoring; Z79.01 Long term (current) use of anticoagulants; Z95.0 Presence of cardiac pacemaker
CPT/HCPCS: 36415; 85610

== ENCOUNTER → 2018-06-26 | Outpatient (CLI) | payer MEDICARE, OTHER ==
--- NOTE | 2018-06-26 21:12 | BD ---
EXAMINATION TYPE: Axial Bone Density DATE OF EXAM: 06/26/2018 COMPARISON: 01.24.2015 CLINICAL HISTORY: 83 YR OLD FEMALE....ICD-10 CODE: M85.9 DISORDER OF BONE Height: 62 Weight: 226 FRAX RISK QUESTIONS: Glucocorticoids (More than 3mos): PT STATES NO ....BUT SHE HAS RA (Ex: prednisone, prednisolone, methylprednisolone, dexamethasone, and hydrocortisone). Secondary Osteoporosis: YES 3. Menopause before 45: YES, AT 30 YRS OLD Rheumatoid Arthritis: YES RISK FACTORS HISTORY OF: Surgery to LT HIP REPLACEMENT...2016 Diet low in dairy products/other sources of calcium: YES A BIT Postmenopausal woman: NATURAL AT 30YRS OLD Lost more than 2 inches in height since high school: YES Frequent falls: UNSTEADY, USES A CANE AND W/C MEDICATIONS: Thyroid Medications: YES, SYNTHROID, 20+ YRS Additional Medications: BP MEDS, REFLUX MEDS, STATINS FOR CHOLESTEROL, HEART MEDS, CALCIUM AND VITAMI N D, Additional History: BILAT TKRs, SPINAL STENOSIS, RA EXAM MEASUREMENTS: Bone mineral densitometry was performed using the [employer] System. Bone mineral density as measured about the Lumbar spine is: ----- L1-L4(G/cm2): 1.522 T Score Values are as follows: ----- L1: 2.2 ----- L2: 2.9 ----- L3: 3.9 ----- L4: 2.0 ----- L1-L4: 2.8 Bone mineral density has: Increased 8.8% SINCE...01.24.2015 STUDY Bone mineral density about the R hip (g/cm2): 0.844 T Score values are as follows: -----R Neck: -0.6 -----R Total: -1.3 Bone mineral density has: Increased 10.8% SINCE...01.24.2015 STUDY FRAX%s: THERE IS A 11.6% CHANCE FOR A MAJOR OSTEOPOROTIC FX AND A 2.2% FOR HIP FX...PROBABILITY OF FX IN 10 YRS TIME IMPRESSION: Normal (Values between +1 and -1 indicate normal bone mass). Consider repeating this study in 5 year s or sooner if there is some new clinical indication. NOTE: T-SCORE=SD OF THE YOUNG ADULT MEAN.
--- NOTE | 2018-06-29 09:32 | MM ---
Reason for exam: screening (asymptomatic). Last mammogram was performed 1 year and 5 months ago. History: Patient is postmenopausal and history of other cancer. Physical Findings: A clinical breast exam by your physician is recommended on an annual basis and results should be correlated with mammographic findings. MG 3D Screening Mammo W/Cad Bilateral CC and MLO view(s) were taken. Prior study comparison: February 06, 2017, bilateral MG 3d screening mammo w/cad. February 05, 2016, bilateral MG 3d screening mammo w/cad. There are scattered fibroglandular densities. Benign appearing bilateral calcifications. No suspicious abnormality. No significant changes when compared with prior studies. ASSESSMENT: Benign, BI-RAD 2 RECOMMENDATION: Routine screening mammogram of both breasts in 1 year.
== END | disposition home or self-care (01) ==
LOC: RADMAMWWP 10:56
PROVIDERS: ATTEND Internal Medicine
DX: Z12.31 Encounter for screening mammogram for malignant neoplasm of breast (principal); M85.9 Disorder of bone density and structure, unspecified
CPT/HCPCS: 77063; 77067; 77080

== ENCOUNTER → 2018-11-20 | Outpatient (CLI) | payer MEDICARE, OTHER ==
--- NOTE | 2018-11-20 15:54 | US ---
EXAMINATION TYPE: US kidneys/renal and bladder DATE OF EXAM: 11/20/2018 COMPARISON: NONE CLINICAL HISTORY: N18.2 Stage 2 kidney disease. CKD stage II EXAM MEASUREMENTS: Right Kidney: 10.0 x 4.5 x 4.5 cm Left Kidney: 9.0 x 5.1 x 4.5 cm Technical limitations due to overlying bowel content Right Kidney: no evidence of hydronephrosis. Cortical renal thinning is seen. Cortical medullary diff erentiation is maintained. Left Kidney: no evidence of hydronephrosis cortical renal thinning is seen. Cortical medullary differ entiation is maintained. Bladder: wnl Bilateral Jets seen: no There is no evidence for hydronephrosis at this point in time. No nephrolithiasis is seen. No pito s are identified. The urinary bladder is anechoic however the key are slightly irregular. Bilater al ureteral jets are not seen. IMPRESSION: 1. No hydronephrosis or nephrolithiasis. There is bilateral cortical renal thinning, right greater th an left (sequela of medical renal disease). 2. Urinary bladder contour is slightly irregular. Correlate with urinalysis to exclude cystitis.
== END | disposition home or self-care (01) ==
LOC: RADUSWWP 15:16
PROVIDERS: ATTEND Internal Medicine
DX: N28.89 Other specified disorders of kidney and ureter (principal); N18.2 Chronic kidney disease, stage 2 (mild)
CPT/HCPCS: 76770

== ENCOUNTER → 2019-02-24 | Outpatient (CLI) | payer MEDICARE, OTHER ==
--- NOTE | 2019-02-24 13:10 | CT ---
EXAMINATION TYPE: CT brain wo con DATE OF EXAM: 02/24/2019 COMPARISON: None HISTORY: head pain and pressure for [address] DLP: 1029.9 mGycm Automated exposure control for dose reduction was used. FINDINGS: Mild generalized degenerative change. There is periventricular low attenuation which is nonspecific. There is no midline shift or mass effect. There is a prominent vascular structure anterior to the lef t anterior frontal horn. No midline shift. Calvarium intact. Intracranial atherosclerotic changes noted. IMPRESSION: 1. No evidence of acute intracranial hemorrhage or mass effect. 2. Degenerative and nonspecific white matter changes most typical remote microvascular ischemia. If t here is concern for acute ischemia correlate with MRI as clinically warranted. 3. Prominent vascular structure along the anterior margin of the left frontal horn. Recommend follow- up MRA or CTA.
--- NOTE | 2019-02-24 15:45 | US ---
EXAMINATION TYPE: US kidneys/renal and bladder DATE OF EXAM: 02/24/2019 COMPARISON: US 11/20/2018 CLINICAL HISTORY: G44.311 Acute post-traumatic headache, intractable. Acute Kidney Injury. EXAM MEASUREMENTS: Right Kidney: 9.7 x 5.8 x 4.3 cm Left Kidney: 8.5 x 4.8 x 4.5 cm US limited by rib shadowing. Right Kidney: No hydronephrosis or masses seen. Left Kidney: No hydronephrosis or masses seen. Bladder: wnl Bilateral Jets seen: only left ureteral jet was seen within 3 minute observation There is no evidence for hydronephrosis at this point in time. No nephrolithiasis is seen. No pito s are identified. The urinary bladder is anechoic. Bilateral cortical renal thinning is seen. IMPRESSION: Sequela of chronic medical renal disease with cortical renal thinning. No hydronephrosis of either kidney.
== END ==
LOC: RADCTMAIN 12:39
PROVIDERS: ATTEND Internal Medicine
DX: R90.89 Other abnormal findings on diagnostic imaging of central nervous system (principal); N18.9 Chronic kidney disease, unspecified; R93.421 Abnormal radiologic findings on diagnostic imaging of right kidney; R93.422 Abnormal radiologic findings on diagnostic imaging of left kidney
CPT/HCPCS: 70450; 76770

== ENCOUNTER → 2019-12-28 | Outpatient (CLI) | payer MEDICARE, OTHER ==
--- NOTE | 2019-12-28 12:05 | BD ---
EXAMINATION TYPE: Axial Bone Density DATE OF EXAM: 12/28/2019 COMPARISON: Prior DEXA bone scan June 26, 2018 CLINICAL HISTORY: Postmenopausal female. Height: 62.5 IN Weight: 223 LBS FRAX RISK QUESTIONS: Secondary Osteoporosis: 3. Menopause before 45: YES PARTIAL HYST AGE 39 RISK FACTORS HISTORY OF: Surgery to Hip(left): YES 2014 Active: LIMITED Diet low in dairy products/other sources of calcium: YES Postmenopausal woman: PARTIAL HYST AGE 39 Lost more than 2 inches in height since high school: YES 2.5" MEDICATIONS: Thyroid Medications: YES Which medication: Levothyroxine How Lon+ YEARS Additional Medications: CALCIUM, VIT D, LEVOTHYROXINE,BLOOD PRESSURE MEDS, HEART MEDS, VIT B, MAGNESI UM, WATER PILL, CHOLESTEROL MEDS, EXAM MEASUREMENTS: Bone mineral densitometry was performed using the [employer] System. Bone mineral density as measured about the Lumbar spine is: ----- L1-L4(G/cm2): 1.347 T Score Values are as follows: ----- L2: 2.4 ----- L3: 2.3 ----- L4: -0.5 ----- L1-L4: 1.4 Bone mineral density has: Decreased -3.1% since study of: 01/24/2015 Bone mineral density about the R hip (g/cm2): 0.802 T Score values are as follows: -----R Neck: -1.7 -----R Total: -2.3 Bone mineral density has: Decreased -5.0% since study of: 01/24/2015 IMPRESSION: Osteopenia (T Score between -2.5 and -1) remains present right hip. Bone density decreased or diminis hed from prior There remains slightly increased risk of fracture and the patient may be considered for treatment. Re-Screen 2-5 years. NOTE: T-SCORE=SD OF THE YOUNG ADULT MEAN.
--- NOTE | 2019-12-29 10:17 | MM ---
Reason for exam: screening (asymptomatic). Last mammogram was performed 1 year and 6 months ago. History: Patient is postmenopausal and history of other cancer. Physical Findings: A clinical breast exam by your physician is recommended on an annual basis and results should be correlated with mammographic findings. MG 3D Screening Mammo W/Cad Bilateral CC and MLO view(s) were taken. Prior study comparison: June 26, 2018, bilateral MG 3d screening mammo w/cad. February 06, 2017, bilateral MG 3d screening mammo w/cad. There are scattered fibroglandular densities. Stable benign calcifications. There is no discrete abnormality. No significant changes when compared with prior studies. ASSESSMENT: Benign, BI-RAD 2 RECOMMENDATION: Routine screening mammogram of both breasts in 1 year.
== END | disposition home or self-care (01) ==
LOC: RADMAMWWP 08:53
PROVIDERS: ATTEND Internal Medicine
DX: Z12.31 Encounter for screening mammogram for malignant neoplasm of breast (principal); M85.852 Other specified disorders of bone density and structure, left thigh; M81.0 Age-related osteoporosis without current pathological fracture
CPT/HCPCS: 77063; 77067; 77080